=== PATIENT | male | born 1965 | race African-American/Black ===

== ENCOUNTER 2022-12-28 14:05 | Inpatient (IN) | payer OTHER ==
[2022-12-28 16:14] VITALS: BMI 26.2
[2022-12-28] MEDS ORDERED: guaiFENesin 600 MG TABLET.ER (FP) PO PRN (17:43)
[2022-12-28] MEDS ORDERED: IBUPROFEN 400 MG TABLET (FP) PO PRN (17:43)
[2022-12-28] MEDS ORDERED: BISMUTH SUBSALICYLATE 524 MG/30 ML PO PRN (17:43)
[2022-12-28] MEDS ORDERED: IBUPROFEN 600 MG TABLET (FP) PO PRN (17:43)
[2022-12-28] MEDS ORDERED: cloNIDine HCL 0.1 MG TABLET PO PRN (17:43)
[2022-12-28] MEDS ORDERED: MAG HYDROX/AL HYDROX/SIMETH 30 ML UNIT-DOSE CUP PO PRN (17:43)
[2022-12-28] MEDS ORDERED: NALOXONE HCL (KLOXXADO) 8 MG SPRAY NS PRN (17:43)
[2022-12-28] MEDS ORDERED: BENZONATATE 200 MG CAPSULE PO PRN (17:43)
[2022-12-28] MEDS ORDERED: NICOTINE 10 MG CARTRIDGE (INHALER) IH PRN (17:43)
[2022-12-28] MEDS ORDERED: DICYCLOMINE HCL 10 MG CAPSULE PO PRN (17:43)
[2022-12-28] MEDS ORDERED: methaDONE HCL 10 MG TABLET (FOR DETOX USE ONLY) PO ONE ×2 (17:43→20:30)
[2022-12-28] MEDS ORDERED: POLYETHYLENE GLYCOL (HEALTHYLAX) 3350 17 GM PACKET PO PRN (17:43)
[2022-12-28] MEDS ORDERED: MAGNESIUM HYDROX 2400MG/30ML ORAL SUSPENSION 30 ML CUP PO PRN (17:43)
[2022-12-28] MEDS ORDERED: ACETAMINOPHEN 325 MG TABLET (FP) PO PRN (17:43)
[2022-12-28] MEDS ORDERED: NALOXONE HCL 0.4 MG/ML VIAL IM PRN (17:43)
[2022-12-28] MEDS ORDERED: BENZOCAINE/MENTHOL (CHLORASEPTIC ) LOZENGE MM PRN (17:43)
[2022-12-28] MEDS ORDERED: LOPERAMIDE HCL 2 MG CAPSULE PO PRN (17:43)
[2022-12-28] MEDS ORDERED: cloNIDine HCL 0.1 MG TABLET PO ONE (18:31)
[2022-12-28] MEDS ORDERED: cloNIDine HCL 0.1 MG TABLET ONE (18:37)
[2022-12-28] MEDS: MELATONIN 5 MG TABLETS PO SCH (22:48)
[2022-12-28] MEDS: THIAMINE HCL 100 MG TABLET (FP) PO SCH (22:49)
[2022-12-29] MEDS: PRENATAL VITAMINS W/ FOLIC ACID TABLET (FP) PO SCH (10:38)
[2022-12-29 11:56] LABS: HEMATOCRIT 33.5 % (35.4-49); HEMOGLOBIN 10.8 GM/dL (11.7-16.9); MCH 23.8 pg (25.7-33.7); MCHC 32.2 g/dl (32.0-35.9); MEAN CELL VOLUME 73.8 fl (80-96); MEAN PLT VOLUME 8.3 fl (7.5-11.1); PLATELET COUNT 205 10^3/uL (134-434); RBC 4.54 M/mm3 (4.00-5.60); RDW 16.2 % (11.9-15.9); WHITE BLOOD COUNT 3.2 K/mm3 (4.0-10.0)
[2022-12-29 12:30] LABS: CALCIUM 8.6 mg/dL (8.5-10.1)
[2022-12-29 12:31] LABS: ALBUMIN 3.2 g/dl (3.4-5.0); BLOOD UREA NITROGEN 14.6 mg/dL (7-18)
[2022-12-29 12:33] LABS: CREATININE 0.9 mg/dL (0.55-1.3)
[2022-12-29 12:35] LABS: BILIRUBIN,TOTAL 0.5 mg/dL (0.2-1); TOT PROT 6.7 g/dl (6.4-8.2)
[2022-12-29] MEDS: METHOCARBAMOL 500 MG TABLET PO PRN (21:52)
[2022-12-29] MEDS: GABAPENTIN 100 MG CAPSULE PO SCH (21:54)
[2022-12-29] MEDS: traZODone HCL 50 MG TABLET (FP) PO SCH (21:54)
[2022-12-29] MEDS: MELATONIN 5 MG TABLETS PO SCH (21:54)
[2022-12-29] MEDS: THIAMINE HCL 100 MG TABLET (FP) PO SCH (21:54)
[2022-12-30] MEDS: GABAPENTIN 100 MG CAPSULE PO SCH ×4 (05:55→22:56)
[2022-12-30] MEDS ORDERED: methaDONE HCL 10 MG TABLET (FOR DETOX USE ONLY) PO ONE (10:00)
[2022-12-30] MEDS: PRENATAL VITAMINS W/ FOLIC ACID TABLET (FP) PO SCH (10:34)
[2022-12-30] MEDS: METHOCARBAMOL 500 MG TABLET PO PRN (10:35)
[2022-12-30] MEDS: traZODone HCL 50 MG TABLET (FP) PO SCH ×2 (21:55→22:57)
[2022-12-30] MEDS: MELATONIN 5 MG TABLETS PO SCH ×2 (21:55→22:56)
[2022-12-30] MEDS: THIAMINE HCL 100 MG TABLET (FP) PO SCH ×2 (21:55→22:57)
[2022-12-31] MEDS: GABAPENTIN 100 MG CAPSULE PO SCH ×2 (05:51→14:47)
[2022-12-31] MEDS: PRENATAL VITAMINS W/ FOLIC ACID TABLET (FP) PO SCH (10:17)
[2022-12-31] MEDS: MELATONIN 5 MG TABLETS PO SCH (22:17)
[2022-12-31] MEDS: traZODone HCL 100 MG TABLET (FP) PO SCH (22:17)
[2022-12-31] MEDS: METHOCARBAMOL 500 MG TABLET PO PRN (22:17)
[2022-12-31] MEDS: PRAZOSIN HCL 1 MG CAPSULE PO SCH (22:17)
[2022-12-31] MEDS: THIAMINE HCL 100 MG TABLET (FP) PO SCH (22:17)
[2022-12-31] MEDS: GABAPENTIN 300 MG CAPSULE PO SCH (22:18)
[2023-01-01] MEDS: GABAPENTIN 300 MG CAPSULE PO SCH ×3 (05:40→22:43)
[2023-01-01] MEDS ORDERED: methaDONE HCL 10 MG TABLET (FOR DETOX USE ONLY) PO ONE (10:00)
[2023-01-01] MEDS: PRENATAL VITAMINS W/ FOLIC ACID TABLET (FP) PO SCH (10:25)
[2023-01-01] MEDS: THIAMINE HCL 100 MG TABLET (FP) PO SCH (22:42)
[2023-01-01] MEDS: MELATONIN 5 MG TABLETS PO SCH (22:42)
[2023-01-01] MEDS: traZODone HCL 100 MG TABLET (FP) PO SCH (22:43)
[2023-01-01] MEDS: PRAZOSIN HCL 1 MG CAPSULE PO SCH (22:43)
[2023-01-02] MEDS: GABAPENTIN 300 MG CAPSULE PO SCH (05:36)
[2023-01-02 09:40] VITALS: BP 133/74; PULSE 83; RESP 16; TEMP 97.3
== END 2023-01-02 09:36 | disposition home or self-care (01) | DRG 773 ==
LOC: YASAS 14:05 → Y3N 18:35
PROVIDERS: ADMIT Allergy & Immunology; ATTEND Surgery
PROC: HZ2ZZZZ Detoxification Services for Substance Abuse Treatment (ICD-10-PCS; principal; 2022-12-28)
DX: F11.23 Opioid dependence with withdrawal (principal); F12.20 Cannabis dependence, uncomplicated; F17.210 Nicotine dependence, cigarettes, uncomplicated; F31.9 Bipolar disorder, unspecified; F19.24 Other psychoactive substance dependence with psychoactive substance-induced mood disorder; F41.9 Anxiety disorder, unspecified; F43.10 Post-traumatic stress disorder, unspecified; G47.00 Insomnia, unspecified; M54.50 Low back pain, unspecified; G89.29 Other chronic pain; Z86.59 Personal history of other mental and behavioral disorders
CPT/HCPCS: 36415; 80053; 80178; 85027; 86780; 87811; 93005; 93010; C9803-CS; U0003; U0005